=== PATIENT | male | born 1990 | race Caucasian/White ===

== ENCOUNTER 2019-05-28 00:12 | Emergency (ER) | payer SELFPAY ==
[2019-05-28] MEDS ORDERED: NAPROXEN 500 MG TAB PO (03:00)
[2019-05-28] MEDS: NAPROXEN 250 MG TAB PO ×2 (03:13→03:14)
== END 2019-05-28 03:15 | disposition home or self-care (01) ==
LOC: FTE 00:12
DX: L02.31 Cutaneous abscess of buttock (principal)
CPT/HCPCS: 99283

== ENCOUNTER 2019-06-15 18:49 | Emergency (ER) | payer MEDICAID ==
[2019-06-15] MEDS: LIDOCAINE 1% (MPF) 5 ML VIAL INFIL (20:25)
[2019-06-15] MEDS: ONDANSETRON (ODT) 4 MG TAB ODT (20:45)
[2019-06-15] MEDS: HYDROCODONE/APAP (5/325) TAB PO (21:08)
== END 2019-06-15 23:15 | disposition home or self-care (01) ==
LOC: FTE 23:15
DX: L02.31 Cutaneous abscess of buttock (principal)
CPT/HCPCS: 99283; Z7502

== ENCOUNTER 2019-06-18 15:02 | Emergency (ER) | payer MEDICAID | END 2019-06-18 16:31 | disposition home or self-care (01) | LOC: E/R 15:02 | DX: Z48.01 Encounter for change or removal of surgical wound dressing (principal) | CPT/HCPCS: 99281; Z7502 ==